=== PATIENT | male | born 2000 | race Caucasian/White ===

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

== ENCOUNTER → 2020-08-06 17:22 | Outpatient (CLI) | payer OTHER, SELFPAY ==
[2019-03-05 09:37] VITALS: BMI 25.1
== END ==
PROVIDERS: PCP Pediatrics; Referring Provider Family Medicine; Visit Provider Family Medicine
DX: Z20.828 Contact with and (suspected) exposure to other viral communicable diseases (principal); J02.9 Acute pharyngitis, unspecified
CPT/HCPCS: 87635; C9803; U0003

== ENCOUNTER → 2020-12-07 13:54 | Outpatient (CLI) | payer OTHER, SELFPAY ==
[2020-08-11 07:34] VITALS: BMI 23.5
[2020-12-09 08:37] LABS: SARS-COV-2 TOTAL ABS Nonreactive (Nonreactive)
[2020-12-10 15:04] LABS: EBV Acute VCA IgM < 36.0 U/mL (0.0-35.9); EBV Nuclear Antigen IgG 23.9 U/mL (0.0-17.9); EBV-VCA IgG > 600.0 U/mL (0.0-17.9)
== END ==
PROVIDERS: PCP Family Medicine; Visit Provider Family Medicine
DX: R53.83 Other fatigue (principal); R09.89 Other specified symptoms and signs involving the circulatory and respiratory systems
CPT/HCPCS: 36415; 86664; 86665; 86769

== ENCOUNTER 2022-05-02 22:14 | Emergency (ER) | payer OTHER, SELFPAY ==
[2022-05-02 22:15] VITALS: BP 125/86; PULSE 56; RESP 16; TEMP 36.7; O2SAT 99; BMI 22.9
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
[2022-05-02] MEDS: Ibuprofen 600 MG Tablet PO (23:00)
== END 2022-05-02 23:01 | disposition home or self-care (01) ==
PROVIDERS: Emergency Provider Emergency Medicine; PCP Family Medicine; Visit Provider Emergency Medicine
DX: S46.912A Strain of unspecified muscle, fascia and tendon at shoulder and upper arm level, left arm, initial encounter (principal); S40.012A Contusion of left shoulder, initial encounter; V53.6XXA Passenger in pick-up truck or van injured in collision with car, pick-up truck or van in traffic accident, initial encounter; Y93.89 Activity, other specified; Y99.8 Other external cause status; Y92.410 Unspecified street and highway as the place of occurrence of the external cause
CPT/HCPCS: 99281; 99283